=== PATIENT | female | born 1935 | race Caucasian/White ===

== ENCOUNTER → 2017-06-27 15:15 | Outpatient (CLI) | payer MEDICARE, SELFPAY ==
--- NOTE | 2017-06-27 15:37 | XR_ITS ---
XR foot RT min 3V HISTORY: ITS.REASON: DISCOLORATION OF SKIN OF FOOT ORDERING PHYSICIAN: Susan Valdovinos PATIENT AGE: 82 years COMPARISON: None FINDINGS: Mild hallux valgus with first metatarsal phalangeal angle of 32 degrees with mild osteoarthritic change of the first MTP joint. No fracture or dislocation. No lytic or blastic change. There is a small calcaneal spur and there is mild dorsiflexion of the toes. 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
== END ==
PROVIDERS: PCP Family Medicine; Visit Provider Nurse Practitioner Family
DX: L81.9 Disorder of pigmentation, unspecified (principal)
CPT/HCPCS: 73630

== ENCOUNTER → 2017-07-05 12:52 | Outpatient (CLI) | payer MEDICARE, SELFPAY ==
--- NOTE | 2017-07-05 13:00 | US_ITS ---
US Arterial Ankle Brachial Ind COMPARISON: None HISTORY: Rest pain in both legs, no claudication no skin color change, current smoker, previous vascular surgery in both legs TECHNIQUE: Segmental blood pressures of the legs and Doppler waveform evaluation FINDINGS: The blood pressure right arm is 121. Pressures in the right leg show the thigh be 110 calf 95 posterior tibial 91 and dorsalis pedis 113. The digital pressure was 0. The left brachial pressure was 114. Pressures left leg show the thigh be 118 calf 98 posterior tibial 104 and dorsalis pedis 109. The digital pressure is 12. There is decreased amplitude. Of the Doppler waveforms in the right calf and right ankle. There is slightly decreased amplitude of the waveforms in the left ankle. IMPRESSION: The right SUE is 0.93 left SUE 0.90, markedly abnormal ABIs bilaterally.
== END ==
PROVIDERS: Family Provider Family Medicine; PCP Family Medicine; Visit Provider Nurse Practitioner Family
DX: R09.89 Other specified symptoms and signs involving the circulatory and respiratory systems (principal); L81.9 Disorder of pigmentation, unspecified
CPT/HCPCS: 93922

== ENCOUNTER → 2017-08-05 14:15 | Outpatient (CLI) | payer MEDICARE, SELFPAY ==
--- NOTE | 2017-08-05 14:22 | CA_ITS ---
PROCEDURE: 2-D M-mode and color Doppler study INDICATIONS FOR THE TEST: Chest pain X COPDX Heart Murmur Tobacco SmokingX Palpitations Fatigue Syncope Edema HypertensionXDiabetes Mellitus Rheumatic Fever SOBXDOEXObesity Hyperlipidemia Family History HD Additional History CAD,STENT TDE 2DARY COPD,MASTECTOMY,BODY HABITUS PATIENT INFORMATION HEIGHT: 62 WEIGHT:102 GENDER: Female B/P:127/58 2-D/M-MODE INTERPRETATION: 2-D MEASUREMENTS OBSERVED VALUES IN CMS Right Ventricular Dimension (RVDd) 2.9 Interventricular Septum (Thickness)(IVsd) 1.0 Left Ventricular Internal Dimensions(LVIDd) 3.6 Left Ventricular Posterior Wall (Thickness)(LVPWd) .8 Aortic Root 2.0 Aortic Cusp Separation .5 Left Atrial Dimensions (LAD) 1.6 2D 1. This is technically very difficult and poor study. 2. The left atrium is mildly enlarged, left ventricle is normal size mild concentric left ventricular hypertrophy, visually estimated ejection fraction of 55% with no obvious regional wall motion abnormality. 3. The right atrium and right ventricle are mildly enlarged with normal contractility. 4. The aortic valve is heavily thickened and calcified with severe restriction the leaflet mobility. 5. The mitral and tricuspid valve is minimally thickened. 6. The pulmonic valve is poorly visualized. 7. No significant pericardial effusion noted. DOPPLER INTERROGATION: The aortic out flow velocity is not accurately recorded study, morphologically there is severe aortic stenosis, there is no aortic insufficiency. If clinically indicated repeat study with better Doppler technique or a transesophageal echocardiogram is recommended. Mild mitral and tricuspid regurgitation. Tricuspid and jet velocity insufficient for calculation of the right ventricular systolic pressure. Diastolic parameters are inconclusive. CONCLUSION: 1. Technically very difficult and poor study 2. Normal left ventricular size, mild concentric left ventricular hypertrophy, visually estimated ejection fraction 55% with no obvious regional wall motion abnormality, diastolic parameters are inconclusive. 3. Abnormal aortic valve is described above, morphologically there is severe aortic stenosis, a repeat study with better Doppler technique or transesophageal echocardiogram is recommended if clinically indicated. 4. Mild mitral and tricuspid regurgitation. 5. No significant pericardial effusion noted.
== END ==
PROVIDERS: Family Provider Family Medicine; PCP Family Medicine; Visit Provider Internal Medicine
DX: I25.110 Atherosclerotic heart disease of native coronary artery with unstable angina pectoris (principal)
CPT/HCPCS: 93306

== ENCOUNTER 2017-09-08 12:22 | Inpatient (IN) ==
[2017-09-08 13:43] LABS: ABG Base Excess -4.2 mmol/L (-2.4-2.3); ABG HCO3 19.6 mmhg (22.0-26.0); ABG Oxygen Saturation 94 % (90-100); ABG PCO2 27.8 mmhg (35.0-45.0); ABG PH 7.47 mmol/L (7.35-7.45); ABG PO2 69.4 mmhg (80-100); ABG TCO2 20.4 mmhg (23-27)
[2017-09-08 13:46] LABS: Allen's Test Acceptable; Oxygen room air %
[2017-09-08 16:10] LABS: Basophils # 0.1 K/mm3 (0-0.2); Basophils % 0.5 % (0.1-2.0); Eosinophils # 0.1 K/mm3 (0.0-0.4); Eosinophils % 1.1 % (0.1-12.0); Hematocrit 32.5 % (37.0-47.0); Lymphocytes # 0.9 K/mm3 (0.7-4.5); Lymphocytes % 7.3 K/mm3 (10-50); Mean Corpuscular HGB Conc 30.8 g/dL (31.8-35.4); Mean Corpuscular Volume 90.7 fl (81-99); Mean Platelet Volume 7.5 fl (7.4-10.4); Monocytes # 1.2 K/mm3 (0.1-1.0); Monocytes % 10.4 % (1.7-9.3); Neutrophils # 9.5 K/mm3 (1.8-7.8); Neutrophils % 80.7 % (37.0-80.0); Platelet Count 341 K/mm3 (142-424); Red Blood Count 3.58 M/mm3 (4.20-5.40); Red Cell Distribution Width 15.2 % (11.5-17.5); White Blood Count 11.7 K/mm3 (4.8-10.8)
[2017-09-08 16:19] LABS: Albumin Level 2.8 gm/dL (3.4-5.0); Albumin/Globulin Ratio 0.6 (1.1-1.8); Bilirubin,Total 0.9 mg/dL (0.2-1.0); Calcium 8.5 mg/dL (8.5-10.1); Globulin 4.5 gm/dl (1.3-3.2); Total Protein,Serum 7.3 gm/dL (6.4-8.2)
--- NOTE | 2017-09-08 16:58 | History & Physical Report ---
*Admission Date: 09/08/17 *Chief complaint: Shortness of breath *History of present illness: 82-year-old female with severe aortic stenosis presented to the office today with complaint of shortness of breath. Shortness of breath is worse on exertion and nearly resolves at rest. Patient has known severe aortic stenosis and has been followed by Dr. Cuevas. He referred the patient to Dr. Rae for potential intervention of her severe aortic stenosis. According to the patient Dr. Rae has informed her she is not a surgical candidate as he does not believe she will survive the surgery. On her last documented echo she had normal LV function. Patient is also known to have peripheral arterial disease. She does have chronic complaints of cold hands and feet. She is medically managed with Brilinta and aspirin. On evaluation in the office patient's extremities were cold and with warming pulse oximetry would reached no higher than 71%. Patient was quite dyspneic and weak with exertion but appeared quite comfortable at rest. Decision was made to admit the patient for further workup of her hypoxia. Upon arrival to the hospital on vital sign monitoring patient's O2 sat was in the low 80s when pulse oximetry was checked on her finger. Pulse oximetry was checked through a forehead monitor and patient's O2 sat was 100% on room air. [facility] History I have reviewed the patient's past medical history: Yes Medical History: Reports:: Chronic Obstructive Pulmonary Disease (COPD), Heart Murmur, Valvular Heart Disease (Severe aortic stenosis) Denies:: Cancer, Diabetes Mellitus Type 1, Diabetes Mellitus Type 2, MRSA, Seizures Other Medical History: Reports: Arthritis, Hypothyroidism Laterality Cases: Right: Mastectomy, Bilateral: Arthroscopy Hip, Total Hip Replacement Other Surgeries: Yes: Coronary Stent, Other (Bladder Sx) Amputation: No Fractures: No - *Social History Educational Level: Completed High School Smoking Status: Current every day smoker Tobacco Type: cigarettes Alcohol Intake: never Alcohol Intake Frequency:: holidays/special occasions only Substance Use Type: denies use Occupational Status: retired Housing: house Household Members: none - Psychiatric History Expresses thoughts of harming self/others: None Suicide Plan Description: No Plan *Family Hx:: Non-contributory Review of Systems - Review of Systems Review of systems:: pertinent systems reviewed and negative unless documented below - *Cardiovascular Denies chest pain, Denies chest pain at rest, Denies chest pain with activity - *Respiratory Reports cough, Reports shortness of breath, Reports shortness of breath with activity, Denies change in phlegm color Meds Home Medications Medication Instructions Recorded Confirmed Type levothyroxine 75 mcg tablet 75 mcg PO DAILY tab 07/25/17 09/08/17 History amlodipine 10 mg tablet 10 mg PO DAILY tab 08/09/17 09/08/17 History aspirin 81 mg tablet,delayed 81 mg PO DAILY tab 08/09/17 09/08/17 History release atorvastatin 20 mg tablet 20 mg PO DAILY tab 08/09/17 09/08/17 History bisoprolol fumarate 5 mg tablet 5 mg PO DAILY tab 08/09/17 09/08/17 History ticagrelor 90 mg tablet 90 mg PO BID 08/09/17 09/08/17 History Allergies Allergy/AdvReac Type Severity Reaction Status Date / Time No Known Allergies Allergy Unverified 03/22/17 14:09 Exam Vital signs and Labs for Last 24 Hours: Temp Pulse Resp BP Pulse Ox 97.8 F 77 16 121/63 92 L 09/08/17 15:54 09/08/17 15:54 09/08/17 15:54 09/08/17 15:54 09/08/17 15:54 Laboratory Results - last 24 hr 09/08/17 12:28: Specimen Source Left radial, O2 % room air, ABG pH 7.47 H, ABG pCO2 27.8 L, ABG pO2 69.4 L, ABG HCO3 19.6 L, ABG Total CO2 20.4 L, ABG O2 Saturation 94, ABG Base Excess -4.2 L, Gunnar Test Acceptable 09/08/17 16:00: WBC 11.7 H, RBC 3.58 L, Hgb 10.0 L, Hct 32.5 L, MCV 90.7, MCH 28.0, MCHC 30.8 L, RDW 15.2, Plt Count 341, MPV 7.5, Neut % (Auto) 80.7 H, Lymph % (Auto) 7.3 L, Dawson % (Auto) 10.4 H, Eos % (Auto) 1.1, Baso % (Auto) 0.5 , Neut # (Auto) 9.5 H, Lymph # (Auto) 0.9, Dawson # (Auto) 1.2 H, Eos # (Auto) 0.1 , Baso # (Auto) 0.1 09/08/17 16:00: Sodium 139, Potassium 4.0, Chloride 103, Carbon Dioxide 26, Anion Gap 14.0, BUN 15, Creatinine 1.20 H, Estimated Creat Clear 27, Estimated GFR 43 L, Est GFR ( Amer) 52 L, Glucose 119 H, Calcium 8.5, Total Bilirubin 0.9, AST 11 L, ALT 14, Alkaline Phosphatase 111, Total Protein 7.3, Albumin 2.8 L, Globulin 4.5 H, Albumin/Globulin Ratio 0.6 L 09/08/17 16:00: B-Natriuretic Peptide 547 H I & O for Last 24 hours: Intake & Output 09/06/17 09/07/17 09/08/17 09/09/17 11:59 11:59 11:59 11:59 Intake Total 480 / 480 Balance 480 / 480 Weight 105 lb 8 oz Narrative: Well-seated patient appears comfortable. There is no tachypnea or sign of respiratory distress. Oropharynx is moist. Neck is without carotid bruits. Lungs are clear to auscultation. Heart has a regular rate and rhythm. Abdomen is thin, soft and nontender. Extremities, including hands and feet, are cool to the touch. H&P: Result - Labs Labs: Short CBC 09/08/17 Range/Units 16:00 WBC 11.7 H (4.8-10.8) K/mm3 Hgb 10.0 L (12.2-16.2) g/dL Hct 32.5 L (37.0-47.0) % Plt Count 341 (142-424) K/mm3 BMP 09/08/17 16:00 Sodium 139 Potassium 4.0 Chloride 103 Carbon Dioxide 26 BUN 15 Creatinine 1.20 H Glucose 119 H Calcium 8.5 Liver Function 09/08/17 Range/Units 16:00 Total Bilirubin 0.9 (0.2-1.0) mg/dL AST 11 L (15-37) U/L ALT 14 (12-78) U/L Alkaline Phosphatase 111 (46-116) U/L Albumin 2.8 L (3.4-5.0) gm/dL Assessment and Plan (1) Severe aortic valve stenosis Current visit: Yes Status: Chronic Category: Medical Code(s): I35.0 - Nonrheumatic aortic (valve) stenosis (2) Abdominal aortic aneurysm (AAA) Current visit: No Status: Chronic Category: Medical Code(s): I71.4 - Abdominal aortic aneurysm, without rupture (3) Anemia Current visit: No Status: Chronic Qualifiers: Anemia type: due to chronic kidney disease Qualified Code(s): D64.9 - Anemia, unspecified Category: Medical Code(s): D64.9 - Anemia, unspecified (4) CAD (coronary artery disease) Current visit: No Status: Acute Category: Medical Code(s): I25.10 - Atherosclerotic heart disease of [place] coronary artery without angina pectoris (5) Hypoxemia Current visit: Yes Status: Acute Category: Medical Code(s): R09.02 - Hypoxemia (6) Bilateral pleural effusion Current visit: Yes Status: Acute Category: Medical Code(s): J90 - Pleural effusion, not elsewhere classified - Assessment and plan all Dx Assessment and Plan for all problems:: Workup has not revealed any new cause for hypoxemia or hypoxia. I do believe the patient's severe aortic stenosis affects peripheral circulation enough that when pulse oximetry is tested on a digit her numbers will repeat low. Some of her shortness of breath is not only caused by her aortic stenosis but the small developing pleural effusions. Patient very likely has an element of diastolic dysfunction as well. As there will be no intervention safe for the patient's aortic stenosis it is life limiting. I have discussed the role of hospice with the patient. She is agreed hospice consultation. Because of the patient's hypoxemia on blood gas she will qualify for oxygen. I will have nursing staff get an ambulatory sat tonight
--- NOTE | 2017-09-09 07:02 | Discharge Summary ---
General - General Admission date:: 09/08/17 Discharge date: 09/09/17 HPI HPI: 82-year-old female with severe aortic stenosis presented to the office today with complaint of shortness of breath. Shortness of breath is worse on exertion and nearly resolves at rest. Patient has known severe aortic stenosis and has been followed by Dr. Cuevas. He referred the patient to Dr. Rae for potential intervention of her severe aortic stenosis. According to the patient Dr. Rae has informed her she is not a surgical candidate as he does not believe she will survive the surgery. On her last documented echo she had normal LV function. Patient is also known to have peripheral arterial disease. She does have chronic complaints of cold hands and feet. She is medically managed with Brilinta and aspirin. On evaluation in the office patient's extremities were cold and with warming pulse oximetry would reached no higher than 71%. Patient was quite dyspneic and weak with exertion but appeared quite comfortable at rest. Decision was made to admit the patient for further workup of her hypoxia. Upon arrival to the hospital on vital sign monitoring patient's O2 sat was in the low 80s when pulse oximetry was checked on her finger. Pulse oximetry was checked through a forehead monitor and patient's O2 sat was 100% on room air. Hospital Course Hospital Course: Patient was admitted and forehead pulse oximetry testing revealed normal O2 sats. CBC had mild anemia. Chest x-ray showed small bilateral pleural effusions. She has known severe aortic stenosis. ABG showed a normal pH with abnormal PaO2. Peripheral pulse oximetry testing generally revealed O2 sats in the 80s. Patient's severe aortic stenosis is obviously limiting her peripheral circulation. As patient has been told there is no additional interventions for her aortic stenosis she is a candidate for hospice. This was discussed with the patient and she agreed to hospice consultation. Hospice consultation was arranged prior to discharge. Once that had occurred patient was discharged to home. I believe she qualifies for home oxygen to use as needed due to her hypoxemia on blood gas. This will be arranged prior to discharge accurate. Patient will follow-up in the office in 1 week. Objective Vital signs: Temp Pulse Resp BP Pulse Ox 98.6 F 85 16 110/53 90 L 09/09/17 04:00 09/09/17 04:00 09/09/17 04:00 09/09/17 04:00 09/09/17 04:00 Results Labs on day of discharge: Labs from last 24 hours 09/08/17 09/08/17 09/08/17 16:00 16:00 16:00 WBC 11.7 H RBC 3.58 L Hgb 10.0 L Hct 32.5 L MCV 90.7 MCH 28.0 MCHC 30.8 L RDW 15.2 Plt Count 341 MPV 7.5 Neut % (Auto) 80.7 H Lymph % (Auto) 7.3 L Mathews % (Auto) 10.4 H Eos % (Auto) 1.1 Baso % (Auto) 0.5 Neut # (Auto) 9.5 H Lymph # (Auto) 0.9 Mathews # (Auto) 1.2 H Eos # (Auto) 0.1 Baso # (Auto) 0.1 Specimen Source O2 % ABG pH ABG pCO2 ABG pO2 ABG HCO3 ABG Total CO2 ABG O2 Saturation ABG Base Excess Gunnar Test Sodium 139 Potassium 4.0 Chloride 103 Carbon Dioxide 26 Anion Gap 14.0 BUN 15 Creatinine 1.20 H Estimated Creat Clear 27 Estimated GFR 43 L Est GFR ( Amer) 52 L Glucose 119 H Calcium 8.5 Total Bilirubin 0.9 AST 11 L ALT 14 Alkaline Phosphatase 111 B-Natriuretic Peptide 547 H Total Protein 7.3 Albumin 2.8 L Globulin 4.5 H Albumin/Globulin Ratio 0.6 L 09/08/17 12:28 WBC RBC Hgb Hct MCV MCH MCHC RDW Plt Count MPV Neut % (Auto) Lymph % (Auto) Mathews % (Auto) Eos % (Auto) Baso % (Auto) Neut # (Auto) Lymph # (Auto) Mathews # (Auto) Eos # (Auto) Baso # (Auto) Specimen Source Left radial O2 % room air ABG pH 7.47 H ABG pCO2 27.8 L ABG pO2 69.4 L ABG HCO3 19.6 L ABG Total CO2 20.4 L ABG O2 Saturation 94 ABG Base Excess -4.2 L Gunnar Test Acceptable Sodium Potassium Chloride Carbon Dioxide Anion Gap BUN Creatinine Estimated Creat Clear Estimated GFR Est GFR ( Amer) Glucose Calcium Total Bilirubin AST ALT Alkaline Phosphatase B-Natriuretic Peptide Total Protein Albumin Globulin Albumin/Globulin Ratio DS: Diagnosis - Discharge Diagnosis (1) Severe aortic valve stenosis Status: Chronic (2) Abdominal aortic aneurysm (AAA) Status: Chronic (3) Anemia Status: Chronic (4) CAD (coronary artery disease) Status: Acute (5) Hypoxemia Status: Acute (6) Bilateral pleural effusion Status: Acute Discharge Plan - Patient Discharge Instructions ACTIVITY: Continue current activity DIET: continue same diet - Follow up Plan Follow up with: Susan Valdovinos APRN [Nurse Practitioner] - 1 week Home Medications: Home Medications Medication Instructions Recorded Confirmed Type levothyroxine 75 mcg tablet 75 mcg PO DAILY tab 07/25/17 09/08/17 History amlodipine 10 mg tablet 10 mg PO DAILY tab 08/09/17 09/08/17 History aspirin 81 mg tablet,delayed 81 mg PO DAILY tab 08/09/17 09/08/17 History release atorvastatin 20 mg tablet 20 mg PO DAILY tab 08/09/17 09/08/17 History bisoprolol fumarate 5 mg tablet 5 mg PO DAILY tab 08/09/17 09/08/17 History ticagrelor 90 mg tablet 90 mg PO BID 08/09/17 09/08/17 History Prescriptions/Medication Reconciliation: Continue levothyroxine 75 mcg tablet 75 mcg PO DAILY tab ticagrelor 90 mg tablet 90 mg PO BID aspirin 81 mg tablet,delayed release 81 mg PO DAILY tab atorvastatin 20 mg tablet 20 mg PO DAILY tab bisoprolol fumarate 5 mg tablet 5 mg PO DAILY tab amlodipine 10 mg tablet 10 mg PO DAILY tab
== END 2017-09-09 12:30 | disposition hospice, home (50) ==
LOC: 2ND 12:32
PROVIDERS: ADMIT Family Medicine; ATTEND Family Medicine

== ENCOUNTER → 2017-10-10 14:46 | Outpatient (CLI) | payer OTHER, MEDICARE, SELFPAY ==
--- NOTE | 2017-10-10 15:00 | XR_ITS ---
XR foot LT min 3V HISTORY: ITS.REASON: LEFT FOOT PAIN ORDERING PHYSICIAN: Susan Valdovinos PATIENT AGE: 82 years COMPARISON: None FINDINGS: There is moderate hallux valgus with first metatarsophalangeal angle of 38 degrees. There are osteoarthritic changes of the first MTP joint with soft tissue swelling medially at the first MTP joint. There is also some sclerosis involving the base of the proximal findings of the first toe etiology indeterminate There is moderate pes cavus with hyperextension of the toes. There is a small calcaneal spur at 4 mm. IMPRESSION: Hallux valgus with bunion formation and osteoarthritis at the first MTP joint Pes cavus with hyperextension of the toes
== END ==
PROVIDERS: PCP Nurse Practitioner Family; Visit Provider Nurse Practitioner Family
DX: M79.672 Pain in left foot (principal)
CPT/HCPCS: 73630